=== PATIENT | female | born 1975 | race Two or more races ===

== ENCOUNTER 2020-07-11 09:25 | Inpatient (IN) | payer MEDICARE, MEDICAID ==
[~2020-07-11] VITALS: Ht 175.3 cm; Wt 102.2 kg
[2020-07-11] MEDS ORDERED: CLINDAMYCIN 600MG IV 50 ML IV ONE (10:15)
[2020-07-11] MEDS ORDERED: SODIUM CHLORIDE 0.9% 1,000 ML IV ONE ×2 (10:15)
[2020-07-11] MEDS ORDERED: cefTRIAXone 1GM/50ML D5W 50 ML IV ONE (10:15)
[2020-07-11 11:04] LABS: Basophils # (auto) 0.1 10 ^3/uL (0-0.2); Basophils % (auto) 0.6 % (0.0-2.0); Eosinophils # (auto) 0.1 10 ^3/uL (0-0.8); Eosinophils % (auto) 1.3 % (0.0-7.0); Hemoglobin 12.7 g/dL (12.2-16.2); Lymphocytes # (auto) 2.1 10 ^3/uL (0.4-5.4); Lymphocytes % (auto) 24.1 % (10.0-50.0); Mean Corpuscular Hemoglobin 31.8 pg (28.0-32.0); Mean Corpuscular Hgb Conc. 33.4 g/dL (32.0-36.0); Monocytes # (auto) 0.6 10 ^3/uL (0-1.3); Monocytes % (auto) 7.1 % (0.0-12.0); Neutrophils # (auto) 5.9 10 ^3/uL (1.6-8.6); Neutrophils % (auto) 66.9 % (37.0-80.0); Red Cell Distribution Width 13.5 % (11.8-14.3); White Blood Cell 8.8 10^3/uL (4.4-10.8)
[2020-07-11 11:20] LABS: INR 0.92 (0.9-1.15); Partial Thromboplastin Time 33.3 sec (23.0-31.2)
[2020-07-11 11:28] LABS: Anion Gap 5 (5-15); Blood Urea Nitrogen 17 mg/dL (7-18); Calcium 7.9 mg/dL (8.5-10.1); Carbon Dioxide 26 mmol/L (21-32); Chloride 108 mmol/L (98-107); Glucose 134 mg/dL (74-106); Potassium 3.6 mmol/L (3.5-5.1); Sodium 139 mmol/L (136-145)
[2020-07-11 11:34] LABS: Alanine Aminotransferase 24 U/L (13-56); Alkaline Phosphatase 115 U/L (45-117); Aspartate Aminotransferase 19 U/L (15-37); Bilirubin, Total 0.5 mg/dL (0.2-1.0); GFR African American 99 mL/min; GFR Non-African American 82 mL/min; Total Protein 7.2 g/dL (6.4-8.2)
[2020-07-11] MEDS ORDERED: IOHEXOL 300 MG/ML 100ML BOTTLE IJ ONE (11:57)
[2020-07-11] MEDS ORDERED: NITROGLYCERIN 0.4 MG SL TAB SL PRN ×2 (14:15→18:00)
[2020-07-11] MEDS ORDERED: MORPHINE SULFATE INJECTION 2 MG/ML SYRG IV PRN ×3 (14:15→18:00)
[2020-07-11] MEDS ORDERED: HYDROcodone-ACET 5/325MG TAB PO PRN (18:00)
[2020-07-11] MEDS ORDERED: ALUM & MAG HYDROX-SIMETH LIQ(MAALOX) 30 ML PO PRN (18:00)
[2020-07-11] MEDS ORDERED: ONDANSETRON HCL 4 MG/2 ML VIAL IV PRN (18:00)
[2020-07-11] MEDS ORDERED: VANCOMYCIN PER PHARMACY 0 MG IV SCH (18:00)
[2020-07-11] MEDS ORDERED: DOCUSATE SOD 100 MG CAP PO PRN (18:00)
[2020-07-11] MEDS ORDERED: CALCIUM W/VIT D (600MG/400IU) TAB PO ONE (18:15)
[2020-07-11 18:45] VITALS: BP 148/91
[2020-07-11] MEDS ORDERED: hydrALAZINE HCL 20 MG/ML VL IV PRN ×2 (19:00→19:15)
[2020-07-11] MEDS: SODIUM CHLORIDE 0.9% 1,000 ML IV SCH (19:07)
[2020-07-11 20:00] VITALS: BP 159/86
[2020-07-11 21:18] LABS: Cholesterol 131 mg/dL (< 200); HDL Cholesterol 61 mg/dL (40-59); LDL Cholesterol 59 mg/dL (< 100); Triglycerides 120 mg/dL (< 150)
[2020-07-11] MEDS: ZINC OXIDE 20 % OINT 30GM TOP SCH (21:37)
[2020-07-11 22:00] VITALS: BP 159/86
[2020-07-11] MEDS ORDERED: MEROPENEM 1GM IVPB 100 ML IV SCH (22:00)
[2020-07-12] MEDS: VANCOMYCIN 1GM/250ML 250 ML IV SCH ×3 (00:24→17:48)
[2020-07-12 05:00] VITALS: BP 145/84
[2020-07-12 05:16] LABS: Basophils # (auto) 0 10 ^3/uL (0-0.2); Basophils % (auto) 0.4 % (0.0-2.0); Eosinophils # (auto) 0.1 10 ^3/uL (0-0.8); Eosinophils % (auto) 2.1 % (0.0-7.0); Hematocrit 39.3 % (36.0-46.0); Hemoglobin 13.1 g/dL (12.2-16.2); Lymphocytes # (auto) 2.4 10 ^3/uL (0.4-5.4); Lymphocytes % (auto) 42.2 % (10.0-50.0); Mean Corpuscular Hemoglobin 31.8 pg (28.0-32.0); Mean Corpuscular Hgb Conc. 33.2 g/dL (32.0-36.0); Mean Corpuscular Volume 95.5 fL (80.0-100.0); Monocytes # (auto) 0.5 10 ^3/uL (0-1.3); Monocytes % (auto) 8.4 % (0.0-12.0); Neutrophils # (auto) 2.7 10 ^3/uL (1.6-8.6); Neutrophils % (auto) 46.9 % (37.0-80.0); Red Blood Cells 4.11 10^6/uL (4.0-5.20); Red Cell Distribution Width 13.2 % (11.8-14.3); White Blood Cell 5.7 10^3/uL (4.4-10.8)
[2020-07-12 05:40] LABS: Chloride 107 mmol/L (98-107); Potassium 3.9 mmol/L (3.5-5.1); Sodium 137 mmol/L (136-145)
[2020-07-12 05:48] LABS: Alanine Aminotransferase 19 U/L (13-56); Albumin 2.7 g/dL (3.4-5.0); Alkaline Phosphatase 92 U/L (45-117); Anion Gap 4 (5-15); Aspartate Aminotransferase 17 U/L (15-37); BUN/Creatinine Ratio 20.5; Bilirubin, Total 0.4 mg/dL (0.2-1.0); Blood Urea Nitrogen 15 mg/dL (7-18); CRP High Sensitivity 0.47 mg/dL (< 0.3); Calcium 7.8 mg/dL (8.5-10.1); Carbon Dioxide 26 mmol/L (21-32); Ferritin 102.7 ng/mL (10-322); GFR African American 111 mL/min; GFR Non-African American 92 mL/min; Glucose 97 mg/dL (74-106); Magnesium 2.2 mg/dL (1.6-2.6); Phosphorus 3.4 mg/dL (2.5-4.90); Total Protein 6.6 g/dL (6.4-8.2); Uric Acid 3.8 mg/dL (2.6-6.0)
[2020-07-12] MEDS: MEROPENEM 1GM IVPB 100 ML IV SCH ×2 (05:49→14:17)
[2020-07-12] MEDS: ZINC OXIDE 20 % OINT 30GM TOP SCH ×3 (06:00→22:00)
[2020-07-12] MEDS: CALCIUM W/VIT D (600MG/400IU) TAB PO SCH ×2 (07:51→17:53)
[2020-07-12 08:20] VITALS: BP 139/95
[2020-07-12] MEDS: NICOTINE 21MG/24 HR TOPICAL PATCH TD SCH (10:00)
[2020-07-12] MEDS: ENOXAPARIN SOD 40 MG/0.4 ML SYRINGE SC SCH (10:00)
[2020-07-12] MEDS: SODIUM CHLORIDE 0.9% 1,000 ML IV SCH (10:40)
[2020-07-12 12:48] VITALS: BP 155/80
[2020-07-12 16:24] LABS: Alcohol, Urine < 3.0 mg/dL (0-10); Amphetamine Screen, Urine POSITIVE (NEGATIVE); Barbiturate Scree,Urine NEGATIVE (NEGATIVE); Benzodiazephine Screen, Urine NEGATIVE (NEGATIVE); Cannabinoid Screen, Urine POSITIVE (NEGATIVE); Cocaine Screen, Urine NEGATIVE (NEGATIVE); Opiate Scree,Urine NEGATIVE (NEGATIVE); Phencyclidine Screen, Urine NEGATIVE (NEGATIVE)
[2020-07-12 16:26] LABS: Urine Amorphous Crystal FEW /hpf (None Seen); Urine Bacteria FEW /hpf (None Seen); Urine Blood Negative /uL (Negative); Urine WBC 1 /hpf (0 - 5)
[2020-07-12 16:57] VITALS: BP 140/94
[2020-07-12] MEDS: Ensure HIGH Protein Chocolate 8oz Bottle PO SCH (17:49)
[2020-07-12] MEDS ORDERED: VANCOMYCIN 1GM/250ML 250 ML IV SCH (18:15)
[2020-07-12 20:00] VITALS: BP 136/72
[2020-07-12 22:00] VITALS: BP 136/72
[2020-07-13] MEDS: VANCOMYCIN 1GM/250ML 250 ML IV SCH ×2 (00:16→08:27)
[2020-07-13] MEDS: LORazepam 0.5 MG TAB PO PRN (01:07)
[2020-07-13] MEDS: MEROPENEM 1GM IVPB 100 ML IV SCH ×3 (01:33→16:54)
[2020-07-13] MEDS: SODIUM CHLORIDE 0.9% 1,000 ML IV SCH ×2 (03:20→20:00)
[2020-07-13 05:00] VITALS: BP 139/81
[2020-07-13] MEDS: ZINC OXIDE 20 % OINT 30GM TOP SCH ×3 (05:57→22:00)
[2020-07-13 06:14] LABS: Basophils # (auto) 0 10 ^3/uL (0-0.2); Basophils % (auto) 0.4 % (0.0-2.0); Eosinophils # (auto) 0.1 10 ^3/uL (0-0.8); Eosinophils % (auto) 1.4 % (0.0-7.0); Hematocrit 41.1 % (36.0-46.0); Hemoglobin 13.8 g/dL (12.2-16.2); Lymphocytes # (auto) 1.9 10 ^3/uL (0.4-5.4); Lymphocytes % (auto) 27.6 % (10.0-50.0); Mean Corpuscular Hgb Conc. 33.5 g/dL (32.0-36.0); Mean Corpuscular Volume 95.3 fL (80.0-100.0); Monocytes # (auto) 0.6 10 ^3/uL (0-1.3); Monocytes % (auto) 8.1 % (0.0-12.0); Neutrophils # (auto) 4.3 10 ^3/uL (1.6-8.6); Neutrophils % (auto) 62.5 % (37.0-80.0); Nucleated Red Blood Cells % 0.1 %; Red Blood Cells 4.32 10^6/uL (4.0-5.20); Red Cell Distribution Width 13.4 % (11.8-14.3); White Blood Cell 6.9 10^3/uL (4.4-10.8)
[2020-07-13 06:36] LABS: Albumin 2.8 g/dL (3.4-5.0); Calcium 7.9 mg/dL (8.5-10.1); Potassium 3.9 mmol/L (3.5-5.1)
[2020-07-13 06:39] LABS: INR 0.91 (0.9-1.15); Partial Thromboplastin Time 32.3 sec (23.0-31.2)
[2020-07-13 06:41] LABS: Bilirubin, Total 0.3 mg/dL (0.2-1.0)
[2020-07-13 08:00] VITALS: BP 155/78
[2020-07-13] MEDS: Ensure HIGH Protein Chocolate 8oz Bottle PO SCH ×3 (08:00→18:01)
[2020-07-13] MEDS: CALCIUM W/VIT D (600MG/400IU) TAB PO SCH ×2 (08:00→18:01)
[2020-07-13] MEDS ORDERED: ROPIVACAINE 0.5% (5MG/ML) 20ML AMPULE IJ ONE (08:41)
[2020-07-13] MEDS: NICOTINE 21MG/24 HR TOPICAL PATCH TD SCH (09:59)
[2020-07-13] MEDS: ENOXAPARIN SOD 40 MG/0.4 ML SYRINGE SC SCH (10:00)
[2020-07-13] MEDS ORDERED: CLINDAMYCIN 600MG IV 50 ML IV ONE (11:07)
[2020-07-13] MEDS ORDERED: SUCCINYLCHOLINE CHLORIDE 20 MG/ML 10ML VIAL IV ONE (11:16)
[2020-07-13] MEDS ORDERED: fentaNYL CITRATE 100 MCG/2 ML VL ONE (11:27)
[2020-07-13] MEDS ORDERED: MIDAZOLAM HCL 2MG/2ML 2ml VIAL (1mg/ml) ONE (11:27)
[2020-07-13] MEDS ORDERED: LIDOCAINE 2% (LOCAL ANESTH.) PF 5ml SDV ONE (11:30)
[2020-07-13] MEDS ORDERED: ONDANSETRON HCL 4 MG/2 ML VIAL ONE (11:30)
[2020-07-13] MEDS ORDERED: PROPOFOL 10 MG/ML 20 ML IV ONE (11:30)
[2020-07-13] MEDS ORDERED: HYDROmorphone HCL 2 MG/ML VL IV PRN (12:30)
[2020-07-13] MEDS ORDERED: ONDANSETRON HCL 4 MG/2 ML VIAL IV PRN (12:30)
[2020-07-13] MEDS ORDERED: cefTRIAXone 1GM/50ML D5W 50 ML IV ONE (14:30)
[2020-07-13] MEDS: CLINDAMYCIN 600MG IV 50 ML IV SCH ×2 (14:51→22:37)
[2020-07-13 17:11] VITALS: BP 146/87
[2020-07-13 22:00] VITALS: BP 142/77
[2020-07-14] MEDS: MEROPENEM 1GM IVPB 100 ML IV SCH ×3 (01:07→16:50)
[2020-07-14 05:47] VITALS: BP 121/64
[2020-07-14 05:53] LABS: Basophils # (auto) 0 10 ^3/uL (0-0.2); Basophils % (auto) 0.5 % (0.0-2.0); Eosinophils # (auto) 0.1 10 ^3/uL (0-0.8); Eosinophils % (auto) 1.6 % (0.0-7.0); Hematocrit 41.1 % (36.0-46.0); Hemoglobin 13.9 g/dL (12.2-16.2); Lymphocytes % (auto) 33.8 % (10.0-50.0); Mean Corpuscular Hgb Conc. 33.8 g/dL (32.0-36.0); Mean Corpuscular Volume 94.9 fL (80.0-100.0); Monocytes # (auto) 0.5 10 ^3/uL (0-1.3); Monocytes % (auto) 9.4 % (0.0-12.0); Neutrophils # (auto) 3.2 10 ^3/uL (1.6-8.6); Neutrophils % (auto) 54.7 % (37.0-80.0); Nucleated Red Blood Cells % 0.1 %; Red Blood Cells 4.33 10^6/uL (4.0-5.20); Red Cell Distribution Width 13.1 % (11.8-14.3); White Blood Cell 5.8 10^3/uL (4.4-10.8)
[2020-07-14] MEDS: ZINC OXIDE 20 % OINT 30GM TOP SCH ×3 (06:00→22:00)
[2020-07-14 06:14] LABS: Albumin 2.7 g/dL (3.4-5.0); Calcium 8.1 mg/dL (8.5-10.1); Potassium 3.9 mmol/L (3.5-5.1)
[2020-07-14 06:17] LABS: BUN/Creatinine Ratio 29.7; Bilirubin, Total 0.2 mg/dL (0.2-1.0); Total Protein 6.7 g/dL (6.4-8.2)
[2020-07-14] MEDS: CLINDAMYCIN 600MG IV 50 ML IV SCH ×3 (06:36→22:35)
[2020-07-14] MEDS: Ensure HIGH Protein Chocolate 8oz Bottle PO SCH ×3 (08:00→18:37)
[2020-07-14 08:28] VITALS: BP 144/108
[2020-07-14] MEDS ORDERED: cefTRIAXone 1GM/50ML D5W 50 ML IV SCH (09:00)
[2020-07-14] MEDS: ENOXAPARIN SOD 40 MG/0.4 ML SYRINGE SC SCH (10:00)
[2020-07-14] MEDS: CALCIUM W/VIT D (600MG/400IU) TAB PO SCH ×2 (10:37→17:44)
[2020-07-14] MEDS: NICOTINE 21MG/24 HR TOPICAL PATCH TD SCH (10:39)
[2020-07-14] MEDS: SODIUM CHLORIDE 0.9% 1,000 ML IV SCH (10:44)
[2020-07-14 12:56] VITALS: BP 123/81
[2020-07-14 12:58] LABS: Folate (Folic Acid) 8.87 ng/mL (5.38-24)
[2020-07-14 16:29] VITALS: BP 146/94
[2020-07-14 22:15] VITALS: BP 141/93
[2020-07-15] MEDS: LORazepam 0.5 MG TAB PO PRN ×3 (00:07→18:31)
[2020-07-15] MEDS: MEROPENEM 1GM IVPB 100 ML IV SCH ×2 (02:12→08:55)
[2020-07-15 05:24] VITALS: BP 150/81
[2020-07-15] MEDS: SODIUM CHLORIDE 0.9% 1,000 ML IV SCH (05:35)
[2020-07-15] MEDS: ZINC OXIDE 20 % OINT 30GM TOP SCH ×3 (05:54→21:52)
[2020-07-15] MEDS: CLINDAMYCIN 600MG IV 50 ML IV SCH (06:38)
[2020-07-15 06:55] VITALS: BP 147/80
[2020-07-15 07:08] LABS: Basophils # (auto) 0 10 ^3/uL (0-0.2); Basophils % (auto) 0.4 % (0.0-2.0); Eosinophils # (auto) 0.1 10 ^3/uL (0-0.8); Eosinophils % (auto) 1.9 % (0.0-7.0); Hematocrit 43.8 % (36.0-46.0); Hemoglobin 15.1 g/dL (12.2-16.2); Lymphocytes # (auto) 2.3 10 ^3/uL (0.4-5.4); Lymphocytes % (auto) 38.9 % (10.0-50.0); Mean Corpuscular Hemoglobin 32.5 pg (28.0-32.0); Mean Corpuscular Hgb Conc. 34.6 g/dL (32.0-36.0); Monocytes # (auto) 0.6 10 ^3/uL (0-1.3); Monocytes % (auto) 9.4 % (0.0-12.0); Neutrophils # (auto) 2.9 10 ^3/uL (1.6-8.6); Neutrophils % (auto) 49.4 % (37.0-80.0); Nucleated Red Blood Cells % 0.2 %; Red Blood Cells 4.66 10^6/uL (4.0-5.20); White Blood Cell 5.9 10^3/uL (4.4-10.8)
[2020-07-15 07:29] LABS: Potassium 4.3 mmol/L (3.5-5.1)
[2020-07-15 07:45] LABS: Albumin 3.1 g/dL (3.4-5.0); BUN/Creatinine Ratio 28.2; Bilirubin, Total 0.2 mg/dL (0.2-1.0); Calcium 8.7 mg/dL (8.5-10.1); Total Protein 7.9 g/dL (6.4-8.2)
[2020-07-15 08:47] VITALS: BP 151/104
[2020-07-15] MEDS: ACETAMINOPHEN 325 MG TAB PO PRN ×2 (08:54→15:43)
[2020-07-15] MEDS: CALCIUM W/VIT D (600MG/400IU) TAB PO SCH ×2 (08:54→18:31)
[2020-07-15] MEDS: Ensure HIGH Protein Chocolate 8oz Bottle PO SCH (08:55)
[2020-07-15] MEDS: ENOXAPARIN SOD 40 MG/0.4 ML SYRINGE SC SCH (08:55)
[2020-07-15] MEDS: NICOTINE 21MG/24 HR TOPICAL PATCH TD SCH (10:00)
[2020-07-15 12:44] VITALS: BP 133/87
[2020-07-15] MEDS: CLINDAMYCIN HCL 150 MG CAP PO SCH ×2 (14:00→21:52)
[2020-07-15 17:00] VITALS: BP 126/91
[2020-07-15 22:00] VITALS: BP 135/69
[2020-07-16 05:00] VITALS: BP 128/81
[2020-07-16] MEDS: ZINC OXIDE 20 % OINT 30GM TOP SCH ×2 (06:00→14:00)
[2020-07-16] MEDS: CLINDAMYCIN HCL 150 MG CAP PO SCH ×2 (06:39→14:40)
[2020-07-16 08:00] VITALS: BP 137/95
[2020-07-16] MEDS: CALCIUM W/VIT D (600MG/400IU) TAB PO SCH (08:21)
[2020-07-16 08:40] VITALS: BP 137/95
[2020-07-16 13:00] VITALS: BP 144/99
[2020-07-16] MEDS: LORazepam 0.5 MG TAB PO PRN (15:03)
[2020-07-16 17:08] VITALS: BP 132/86
[2020-07-16 17:19] VITALS: BP 144/99
== END 2020-07-16 20:30 | disposition home health service (06) | DRG 571 ==
LOC: ER 09:25 → TELE 14:15 → TELE-WESTW 17:45 → WEST WING 07-15 18:28
PROVIDERS: ADMIT Hospitalist; ATTEND Internal Medicine
PROC: 0J9P0ZX Drainage of Left Lower Leg Subcutaneous Tissue and Fascia, Open Approach, Diagnostic (ICD-10-PCS; 2020-07-11)
PROC: 0JBP0ZZ Excision of Left Lower Leg Subcutaneous Tissue and Fascia, Open Approach (ICD-10-PCS; principal; 2020-07-13 11:38)
DX: L03.116 Cellulitis of left lower limb (principal); E44.0 Moderate protein-calorie malnutrition; E03.9 Hypothyroidism, unspecified; I10 Essential (primary) hypertension; L02.416 Cutaneous abscess of left lower limb; E78.5 Hyperlipidemia, unspecified; Z20.822 Contact with and (suspected) exposure to COVID-19; E66.9 Obesity, unspecified; F12.90 Cannabis use, unspecified, uncomplicated; F17.210 Nicotine dependence, cigarettes, uncomplicated; F31.9 Bipolar disorder, unspecified; F41.9 Anxiety disorder, unspecified; F15.10 Other stimulant abuse, uncomplicated; Z88.0 Allergy status to penicillin; Z68.33 Body mass index [BMI] 33.0-33.9, adult; Z82.49 Family history of ischemic heart disease and other diseases of the circulatory system; Z83.3 Family history of diabetes mellitus
CPT/HCPCS: 36415; 71045; 73701; 80053; 80061; 80202; 80307; 81001; 82306; 82607; 82728; 82746; 83036; 83605; 83735; 83880; 84100; 84443; 84484; 84550; 84702; 85025; 85610; 85652; 85730; 86141; 86850; 86900; 86901; 87040; 87070; 87075; 87086; 87205; 87426; 96365; 96367; G0378; J0330; J0696; J2001; J2185; J2250; J2405; J2704; J3490